=== PATIENT | female | born 1980 | race American Indian/Alaskan Native ===

== ENCOUNTER 2019-08-21 11:22 | Emergency (ER) | payer SELFPAY ==
--- NOTE | 2019-08-21 11:31 | Event Note ---
ED Screening Note Date of service: 08/21/19 Time: 11:28 ED Screening Note: This is a 39 y.o. F. that presents to the ER with low back pain for 4 days. PMH of HTN and asthma Patient states she took her brother gabapentin and muscle relaxers which helped for a few hours and returned. LMP 08/02/2019 This initial assessment/diagnostic orders/clinical plan/treatment(s) is/are subject to change based on patients health status, clinical progression and re- assessment by fellow clinical providers in the ED. Further treatment and workup at subsequent clinical providers discretion. Patient/guardian urged not to elope from the ED as their condition may be serious if not clinically assessed and managed. Initial orders include: XR of L-spine
[2019-08-21] MEDS ORDERED: ULTRAM PO ONE (12:02)
[2019-08-21] MEDS ORDERED: TORADOL IM ONE (12:02)
--- NOTE | 2019-08-21 12:04 | Emergency Department Report ---
ED Back Pain/Injury HPI - General Chief Complaint: Extremity Injury, Lower Stated Complaint: LOWER BACK PAIN 4DAYS Time Seen by Provider: 08/21/19 11:28 Source: patient Limitations: No Limitations - History of Present Illness Initial Comments: 39-year-old obese female with a past medical history of hypertension asthma presents to hospital complaining of left-sided lower back pain 4 days. Pain is constant, sharp, aching and rated 10/10 in intensity. Pain hurts with any type of movement and palpation. Symptoms started after doing laundry and preparing food for her family. She denies nausea, vomiting, dysuria, urinary incontinence, hematuria, fever, leg weakness, or leg numbness. Patient presents with elevated blood pressure and has been noncompliant with her blood pressure medication times one month. Patient took her brothers gabapentin a muscle relaxant prior to arrival without relief in pain. - Related Data Previous Rx's Medication Instructions Recorded Last Taken Type Hydrocodone Bit/Acetaminophen 1 each PO Q6H PRN #20 tablet 07/08/13 Unknown Rx [Lortab 10-500 mg] Amlodipine Besylate [Norvasc] 5 mg PO DAILY #30 tablet 08/21/19 Unknown Rx Cyclobenzaprine [Flexeril] 10 mg PO TID PRN #20 tablet 08/21/19 Unknown Rx HYDROcodone/APAP 5-325 [[place] 1 each PO Q6HR PRN #15 tablet 08/21/19 Unknown Rx 5/325] Ibuprofen [Motrin] 800 mg PO Q8HR PRN #30 tablet 08/21/19 Unknown Rx Allergies Allergy/AdvReac Type Severity Reaction Status Date / Time No Known Allergies Allergy Verified 08/21/19 11:24 ED Review of Systems ROS: Stated complaint: LOWER BACK PAIN 4DAYS Other details as noted in HPI Comment: All other systems reviewed and negative ED Past Medical Hx - Past Medical History Hx Hypertension: Yes Hx Asthma: Yes - Surgical History Hx Coronary Stent: No Hx Open Heart Surgery: No Hx Pacemaker: No Hx Internal Defibrillator: No Hx Cholecystectomy: No Hx Appendectomy: No Hx Breast Surgery: No - Social History Smoking Status: Never Smoker Substance Use Type: Alcohol - Medications Home Medications: Home Medications Medication Instructions Recorded Confirmed Last Taken Type Hydrocodone Bit/Acetaminophen 1 each PO Q6H PRN #20 tablet 07/08/13 Unknown Rx [Lortab 10-500 mg] Amlodipine Besylate [Norvasc] 5 mg PO DAILY #30 tablet 08/21/19 Unknown Rx Cyclobenzaprine [Flexeril] 10 mg PO TID PRN #20 tablet 08/21/19 Unknown Rx HYDROcodone/APAP 5-325 [[place] 1 each PO Q6HR PRN #15 tablet 08/21/19 Unknown Rx 5/325] Ibuprofen [Motrin] 800 mg PO Q8HR PRN #30 tablet 08/21/19 Unknown Rx ED Physical Exam - General Limitations: No Limitations - Other Other exam information: Gen.: No acute distress Head: Atraumatic Eyes: Normal appearance ENT: Moist mucous membranes Neck: Normal appearance, no posterior midline tenderness, no meningismus Chest: Clear to auscultation bilaterally Cardiovascular: Regular rate and rhythm Abdomen: Normal appearance, soft, nontender, no rebound or guarding, normal bowel sounds Back: Normal appearance, tenderness to palpation along the left paraspinal muscles extending down to the gluteal region. No midline tenderness. Extremity: Full range of motion, normal appearance Neuro: Alert, oriented 3 clear speech, no focal motor or sensory deficit Psychiatric: Appropriate Skin: No rash ED Course Vital Signs 08/21/19 08/21/19 11:28 13:11 Temperature 98.1 F 98.7 F Pulse Rate 96 H 81 Respiratory 20 14 Rate Blood Pressure 176/108 Blood Pressure 151/96 [Left] O2 Sat by Pulse 98 99 Oximetry ED Medical Decision Making - Radiology Data Radiology results: report reviewed Lumbosacral spine, 3 views INDICATION: Low back pain FINDINGS: The vertebral body heights and disc spaces are preserved. No fracture or spondylolisthesis. No spurring or arthritis. No bony abnormality identified. Tubal occlusion devices are noted in the pelvis. Impression: Normal lumbar spine radiograph. - Medical Decision Making bp improved after pain meds msk pain clinically,no urine, neuro, vascular sx normal spine xray symptomatic tx will be provided. bp med will be prescribed. - Differential Diagnosis msk pain, renal colic, uti, disection Critical Care Time: No Critical care attestation.: If time is entered above; I have spent that time in minutes in the direct care of this critically ill patient, excluding procedure time. ED Disposition Clinical Impression: Low back strain, HTN (hypertension) Disposition: TO HOME OR SELFCARE Is pt being admited?: No Does the pt Need Aspirin: No Condition: Stable Instructions: Low Back Strain (ED), Hypertension (ED) Additional Instructions: Take the medication as prescribed. Follow-up with your doctor or with the doctor/clinic provided. Return if symptoms worsen as indicated by your discharge instructions. Prescriptions: Cyclobenzaprine [Flexeril] 10 mg PO TID PRN #20 tablet PRN Reason: Muscle Spasm Ibuprofen [Motrin] 800 mg PO Q8HR PRN #30 tablet PRN Reason: Pain, Moderate (4-6) HYDROcodone/APAP 5-325 [[place] 5/325] 1 each PO Q6HR PRN #15 tablet PRN Reason: Pain Amlodipine Besylate [Norvasc] 5 mg PO DAILY #30 tablet Referrals: PRIMARY CAREMD [Primary Care Provider] - 3-5 Days [facility] [Provider Group] - 3-5 Days MIGUEL ANGEL MONROE MD [Staff Physician] - 3-5 Days Time of Disposition: 13:25
--- NOTE | 2019-08-21 12:28 | XRay Report ---
Lumbosacral spine, 3 views INDICATION: Low back pain FINDINGS: The vertebral body heights and disc spaces are preserved. No fracture or spondylolisthesis. No spurring or arthritis. No bony abnormality identified. Tubal occlusion devices are noted in the p [place]. Impression: Normal lumbar spine radiograph. Signer Name: Farhan Leahy MD Signed: 08/21/2019 12:23 PM Workstation Name: [id number]
[2019-08-21 13:13] VITALS: BP 151/96
== END 2019-08-21 13:53 | disposition home or self-care (01) ==
LOC: ED 11:22
DX: S39.012A Strain of muscle, fascia and tendon of lower back, initial encounter (principal); I10 Essential (primary) hypertension; J45.909 Unspecified asthma, uncomplicated; Z79.899 Other long term (current) drug therapy; Z91.19 Patient's noncompliance with other medical treatment and regimen; X58.XXXA Exposure to other specified factors, initial encounter; Y93.9 Activity, unspecified; Y92.89 Other specified places as the place of occurrence of the external cause; Y99.8 Other external cause status
CPT/HCPCS: 72100; 96372; 99283; J1885